=== PATIENT | female | born 1945 | race Caucasian/White ===

== ENCOUNTER 2018-11-19 19:39 | Inpatient (IN) | payer MEDICARE, BC ==
[2018-11-19 20:04] LABS: ABS Eosinophils 0.1 10^3/ul (0-0.6); ABS Lymphocytes 3.1 10^3/ul (1.0-4.8); ABS Monocytes 0.9 10^3/ul (0-0.8); ABS Neutrophils 6.4 10^3/ul (1.5-7.7); Eosinophil % 0.8 %; Hematocrit 34 % (35-47); Hemoglobin 11.2 g/dL (12.0-16.0); Lymphocyte % 29.4 %; Mean Corpuscular HGB Conc 34 g/dL (31-36); Mean Corpuscular Hemoglobin 29 pg (27-31); Mean Corpuscular Volume 85 fL (80-97); Platelet Count 179 10^3/uL (150-450); Red Blood Count 3.92 10^6 /uL (3.70-4.87); Red Cell Distribution Width 15 % (10-15); White Blood Count 10.4 10^3/uL (3.5-10.8)
[2018-11-19 20:20] LABS: ALT 16 U/L (7-52); AST 26 U/L (13-39); Albumin 3.8 g/dL (3.2-5.2); Albumin/Globulin Ratio 1.5 (1-3); Alkaline Phosphatase 83 U/L (34-104); Anion Gap 8 mmol/L (2-11); BUN/Creatinine Ratio 21.6 (8-20); Blood Urea Nitrogen 49 mg/dL (6-24); CO2 Carbon Dioxide 27 mmol/L (22-32); Calcium 8.9 mg/dL (8.6-10.3); Chloride 107 mmol/L (101-111); EGFR African American 25.7 (>60); EGFR Non-African American 21.2 (>60); Globulin 2.6 g/dL (2-4); Glucose 142 mg/dL (70-100); INR 1.1 (0.82-1.09); Potassium 3.9 mmol/L (3.5-5.0); Sodium 142 mmol/L (135-145); Total Protein 6.4 g/dL (6.4-8.9)
--- NOTE | 2018-11-19 20:25 | ED ---
Altered Mental Status - HPI Summary HPI Summary: Pt is a 73 y/o F presenting to the ED brought in by EMS for altered mental status. LEVEL 5 CAVEAT: Pts full hx and physical is limited due to current altered mental status. Per the pts daughter, staff at [facility], [place] informed her that the pt has been weak, lethargic, and experiencing low blood pressure all day. She has Alzheimers and is in heart failure, but usually responds to staff. She has not responded to any stimuli today. - History Of Current Complaint Chief Complaint: EDNeurologicalDeficit Stated Complaint: AMS PER EMS Time Seen by Provider: 11/19/18 20:08 Hx Obtained From: Patient Onset/Duration: Still Present, Gradually Timing: Constant, Lasting Hours Severity Initially: Moderate Severity Currently: Severe Character: Responsiveness, Lethargy Aggravating Factor(s): Unknown Alleviating Factor(s): Unknown Associated Signs And Symptoms: Positive: Weakness - Allergies/Home Medications Allergies/Adverse Reactions: Allergies Allergy/AdvReac Type Severity Reaction Status Date / Time No Known Allergies Allergy Verified 11/19/18 19:44 Home Medications: Home Medications Acetaminophen [Tylenol] 650 mg PO Q6H PRN 11/19/18 [History Confirmed 11/19/18] Carvedilol 6.25 mg PO BID 11/19/18 [History Confirmed 11/19/18] Cholecalciferol (Vitamin D3) [Vitamin D3] 2,000 unit PO DAILY 11/19/18 [History Confirmed 11/19/18] Fexofenadine (NF) [Amy 180 (NF)] 180 mg PO DAILY 11/19/18 [History Confirmed 11/19/18] Furosemide [Lasix] 20 mg PO DAILY 11/19/18 [History Confirmed 11/19/18] Haloperidol Lactate 5 mg PO BID 11/19/18 [History Confirmed 11/19/18] Hydrocortisone 2.5% CREAM(NF) 1 applic TOPICAL BID 11/19/18 [History Confirmed 11/19/18] Ketoconazole [Nizoral A-D] 125 ml TOPICAL SEE INSTRUCTIONS 11/19/18 [History Confirmed 11/19/18] Lisinopril 10 mg PO QPM 11/19/18 [History Confirmed 11/19/18] Magnesium Hydroxide [Milk of Magnesia] 400 mg PO QPM PRN 11/19/18 [History Confirmed 11/19/18] Multivitamin [Multiple Vitamins] 1 tab PO DAILY 11/19/18 [History Confirmed ] Quetiapine Fumarate [Seroquel 50 mg tab] 50 mg PO BID 11/19/18 [History Confirmed 11/19/18] Quetiapine Fumarate [Seroquel 50 mg tab] 150 mg PO QPM 11/19/18 [History Confirmed 11/19/18] Sertraline HCl [Zoloft] 25 mg PO DAILY 11/19/18 [History Confirmed 11/19/18] Venlafaxine EXT RELEASE CAP(NF [Effexor Xr CAP 225 MG (NF)] 225 mg PO DAILY [History Confirmed 11/19/18] PMH/Surg Hx/FS Hx/Imm Hx Previously Healthy: No - LEVEL 5 CAVEAT: Pts full hx and physical is limited due to current AMS. - Cancer History Hx Chemotherapy: No Hx Radiation Therapy: No Infectious Disease History: No Infectious Disease History: Denies: Traveled Outside the [place] in Last 30 Days - Family History Known Family History: Positive: Other Family History: LEVEL 5 CAVEAT: Pts full hx and physical is limited due to current altered mental status. - Social History Alcohol Use: None Substance Use Type: Reports: None Smoking Status (MU): Never Smoked Tobacco Review of Systems - ROS Summary Review of Systems Summary: LEVEL 5 CAVEAT: Pts full hx and physical is limited due to current altered mental status. Positive: Other - decreased responsiveness, low blood pressure Positive: Weakness All Other Systems Reviewed And Are Negative: No Physical Exam - Summary Physical Exam Summary: LEVEL 5 CAVEAT: Pts full hx and physical is limited due to current altered mental status. Appearance: The patient is well-nourished, and asleep at bedside. Skin: The skin is warm and dry and skin color reflects adequate perfusion. HEENT: The head is normocephalic and atraumatic. The conjunctivae are clear and without drainage. Nares are patent and without drainage. Mouth reveals moist mucous membranes and the throat is without erythema and exudate. The external ears are intact. The ear canals are patent and without drainage. The tympanic membranes are intact. Neck: The neck is supple with full range of motion and non-tender. There are no carotid bruits. There is no neck vein distension. Respiratory: Chest is non-tender. Lungs are clear to auscultation and breath sounds are symmetrical and equal. Cardiovascular: Heart is regular rate and rhythm. There is no murmur or rub auscultated. There is no peripheral edema and pulses are symmetrical and equal. Abdomen: The abdomen is soft and non-tender. There are normal bowel sounds heard in all four quadrants and there is no organomegaly palpated. Musculoskeletal: There is no back tenderness noted. There is good capillary refill. There is no peripheral edema or calf tenderness elicited. Neurological: Patient is poorly responsive. Psychiatric: The patient is poorly responsive. Triage Information Reviewed: Yes Vital Signs On Initial Exam: Initial Vitals Temp Pulse Resp BP Pulse Ox 97.2 F 99 19 111/58 92 11/19/18 19:40 11/19/18 19:40 11/19/18 19:40 11/19/18 19:40 11/19/18 19:40 Vital Signs Reviewed: Yes Completion Of Physical Exam Limited Due To: Altered Mental Status, Level 5 Diagnostics - Vital Signs Vital Signs Temp Pulse Resp BP Pulse Ox 11/19/18 19:50 102 22 111/58 93 11/19/18 19:46 106 17 92 11/19/18 19:40 97.2 F 99 19 111/58 92 - Laboratory Lab Results: Lab Results 11/19/18 Range/Units 19:55 WBC 10.4 (3.5-10.8) 10^3/uL RBC 3.92 (3.70-4.87) 10^6 /uL Hgb 11.2 L (12.0-16.0) g/dL Hct 34 L (35-47) % MCV 85 (80-97) fL MCH 29 (27-31) pg MCHC 34 (31-36) g/dL RDW 15 (10-15) % Plt Count 179 (150-450) 10^3/uL MPV 10.0 (7.4-10.4) fL Neut % (Auto) 61.1 % Lymph % (Auto) 29.4 % Hudson % (Auto) 8.3 % Eos % (Auto) 0.8 % Baso % (Auto) 0.4 % Absolute Neuts (auto) 6.4 (1.5-7.7) 10^3/ul Absolute Lymphs (auto) 3.1 (1.0-4.8) 10^3/ul Absolute Monos (auto) 0.9 H (0-0.8) 10^3/ul Absolute Eos (auto) 0.1 (0-0.6) 10^3/ul Absolute Basos (auto) 0.0 (0-0.2) 10^3/ul Absolute Nucleated RBC 0.0 10^3/ul Nucleated RBC % 0.0 Result Diagrams: 11/19/18 19:55 11/19/18 19:55 Lab Statement: Any lab studies that have been ordered have been reviewed, and results considered in the medical decision making process. - Radiology CXR Radiology Interpretation Completed By: ED Physician Summary of Radiographic Findings: Mild pulmonary edema. Pending official radiology report. Altered Mental Statu Course/Dx - Course Course Of Treatment: Ms. Portillo apparently has been less responsive with intermittent low blood pressures for most of the day at the custodial. The patient cannot really give a history at this time. She was given IV fluids for her borderline low blood pressure and tachycardia on arrival. Her EKG showed inverted T waves laterally and we have no old EKG to compare to. Her troponin did come back elevated at 0.48 and again we have nothing to compare to. This is suggestive of acute coronary syndrome or possibly an NSTEMI and I discussed the case with Dr. Cadena. I contacted the hospitalist Dr. Davis for admission and he is evaluating the patient at this time. - Diagnoses Provider Diagnoses: Acute coronary syndrome - Provider Notifications Discussed Care Of Patient With: Enrike Epps Time Discussed With Above Provider: 20:47 Instructed by Provider To: Admit As Inpatient - Critical Care Time Critical Care Time: 30-74 min - 30min Discharge - Sign-Out/Discharge Documenting (check all that apply): Patient Departure - Discharge Plan Condition: Stable Disposition: ADMITTED TO [facility] - Billing Disposition and Condition Condition: STABLE Disposition: Admitted to [facility] - Attestation Statements Document Initiated by Scribe: Yes Documenting Scribe: Shena Estrella Provider For Whom Farhad is Documenting (Include Credential): Calvin Ferguson MD. Scribe Attestation: Shena Sol, scribed for Calvin Ferguson MD. on 11/19/18 at 2145. Scribe Documentation Reviewed: Yes Provider Attestation: The documentation as recorded by the scribe, Shena Estrella accurately reflects the service I personally performed and the decisions made by me, Calvin Ferguson MD. Status of Scriblaura Document: Viewed Consult Consult: 2034 - I spoke with Dr. Cadena who recommended a beta guilherme and consideration of administering Heparin. 2046 - I spoke with Dr. Epps who will be evaluating the patient for admission.
[2018-11-19 20:26] LABS: Troponin I 0.48 ng/mL (<0.04)
[2018-11-19] MEDS ORDERED: NS 0.9% 1000 ML** 1,000 ML IV.FLUID IV ONE (20:28)
[2018-11-19] MEDS ORDERED: Magnesium Hydroxide LIQ* 30 ML UDC PO PRN (21:21)
[2018-11-19] MEDS ORDERED: Acetaminophen TAB* 325 MG PO PRN (21:21)
[2018-11-19] MEDS ORDERED: Heparin VIAL(*) 5000 UNITS/ML VIAL (FIVE THOUSAND) IV SCH (23:45)
[2018-11-20] MEDS: Aspirin 81 mg CHEW TAB* 81 MG TAB.CHEW PO ONE ×2 (00:10→00:30)
[2018-11-20 00:11] LABS: Troponin I 0.29 ng/mL (<0.04)
--- NOTE | 2018-11-20 00:42 | HP ---
History of Present Illness - History of Present Illness Reason for Visit: lethargy History of Present Illness: Date of admission: 11/19/18 CC: lethargy HPI: Patient is 73 year old woman with history of advanced Alzheimers Dementia who lives at [facility]. Staff were concerned that she was not her usual self; typically she can walk, and follow some commands; yesterday she was lethargic, and could not bear weight on legs when they got her to standing. She had BP measured 88/54, and tachypnea was noted. She normally is a little combative, not lethargic. Nursing staff notified Dr. Hernandez and she had patient transfered to [facility]. History obtained from SNF records, ER records, and patient's daughter Jessica. In the ER, hypovolemia suspected, and patient received 2 liters of NS IV. 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 Alcohol: None Drugs: None Lives: Longterm, Other - lives in [place], 2 children, daughter Jessica is HCP Review of Systems - Measurements Intake and Output: Intake and Output Last 24 Hours 11/17/18 11/18/18 11/19/18 11/20/18 06:59 06:59 06:59 06:59 Intake Total 0 Balance 0 Weight 80.558 kg Intake: Oral 0 - Review of Systems General Comments: unable to perform ROS due to mental status Objective Active Medications: Home Meds: Acetaminophen [Tylenol] 650 mg PO Q6H PRN 11/19/18 Carvedilol 6.25 mg PO BID 11/19/18 Cholecalciferol (Vitamin D3) [Vitamin D3] 2,000 unit PO DAILY 11/19/18 Fexofenadine (NF) [Amy 180 (NF)] 180 mg PO DAILY 11/19/18 Furosemide [Lasix] 20 mg PO DAILY 11/19/18 Haloperidol Lactate 5 mg PO BID 11/19/18 Hydrocortisone 2.5% CREAM(NF) 1 applic TOPICAL BID 11/19/18 Ketoconazole [Nizoral A-D] 125 ml TOPICAL SEE INSTRUCTIONS 11/19/18 Lisinopril 10 mg PO QPM 11/19/18 Magnesium Hydroxide [Milk of Magnesia] 400 mg PO QPM PRN 11/19/18 Multivitamin [Multiple Vitamins] 1 tab PO DAILY 11/19/18 Quetiapine Fumarate [Seroquel 50 mg tab] 150 mg PO QPM 11/19/18 Quetiapine Fumarate [Seroquel 50 mg tab] 50 mg PO BID 11/19/18 Sertraline HCl [Zoloft] 25 mg PO DAILY 11/19/18 Venlafaxine EXT RELEASE CAP(NF [Effexor Xr CAP 225 MG (NF)] 225 mg PO DAILY Inpatient Med: Acetaminophen (Tylenol Tab*) 650 mg PO Q6H PRN PRN Reason: PAIN - MILD Aspirin (Asa Supp*) 300 mg [place] DAILY [facility] Heparin Sodium (Porcine) (Heparin Vial(*)) 0 units IV .PER PROTOCOL [facility] Heparin Sodium/Dextrose (Heparin Drip 25,000 Units(*)) 25,000 units in 500 mls @ 0 mls/hr IV PER RATE [facility]; Protocol Lisinopril (Prinivil Tab*) 10 mg PO QPM [facility] Magnesium Hydroxide (Milk Of Magnesia Liq*) 5 ml PO QPM PRN PRN Reason: CONSTIPATION Vital Signs - 8 hr 11/19/18 11/19/18 11/19/18 19:40 19:46 19:50 Temperature 36.2 C Pulse Rate 99 106 102 Respiratory 19 17 22 Rate Blood Pressure 111/58 111/58 (mmHg) O2 Sat by Pulse 92 92 93 Oximetry 11/19/18 11/19/18 11/19/18 19:59 20:00 20:14 Temperature Pulse Rate 91 90 83 Respiratory 14 18 16 Rate Blood Pressure 105/51 98/52 (mmHg) O2 Sat by Pulse 92 93 93 Oximetry 11/19/18 11/19/18 11/19/18 20:23 20:29 20:44 Temperature Pulse Rate 84 82 76 Respiratory 18 18 15 Rate Blood Pressure 84/53 106/58 90/53 (mmHg) O2 Sat by Pulse 94 96 93 Oximetry Oxygen Devices in Use Now: None Appearance: elderly, not in distress, unresponsive Eyes: No Scleral Icterus Ears/Nose/Mouth/Throat: Clear Oropharnyx, - - closing mouth Neck: NL Appearance and Movements; NL JVP Respiratory: Symmetrical Chest Expansion and Respiratory Effort, Clear to Auscultation Cardiovascular: NL Sounds; No Murmurs; No JVD, RRR Abdominal: NL Sounds; No Tenderness; No Distention Lymphatic: No Cervical Adenopathy Extremities: - - trace edema Skin: No Rash or Ulcers Neurological: - - unresponsive Lines/Tubes/Other Access: Clean, Dry and Intact Peripheral IV Nutrition: - Result Diagrams: 11/20/18 06:26 11/20/18 06:26 Additional Lab and Data: Laboratory Tests 11/19/18 11/19/18 11/19/18 19:55 19:55 19:55 INR (Anticoag Therapy) 1.10 H Lactic Acid 1.8 Calcium 8.9 AST 26 ALT 16 Alkaline Phosphatase 83 Troponin I 0.48 H* B-Natriuretic Peptide Albumin 3.8 11/19/18 19:55 INR (Anticoag Therapy) Lactic Acid Calcium AST ALT Alkaline Phosphatase Troponin I B-Natriuretic Peptide 166 H Albumin Diagnostic Imaging: CXR: no infiltrates or effusions Head CT: no infarct or bleed, atrophy EKG Data: NSR, leftward axis, deep T-wave inversions I, aVL, V3-V6 Assess/Plan/Problems-Billing Assessment: 73 year old woman with alzheimers dementia, HFrEF, here with lethargy, hypotension, non-STEMI - Patient Problems (1) Non-ST elevated myocardial infarction (non-STEMI) Current Visit: Yes Status: Acute Priority: High Code(s): I21.4 - NON-ST ELEVATION (NSTEMI) MYOCARDIAL INFARCTION SNOMED Code(s): 62598718 Comment: -Patient will be admitted to cardiac floor, have telemetry monitoring, serial troponins -Discussed with daughter Jessica, she does not want any invasive interventions -Will start aspirin daily, and IV heparin. -Will add beta guilherme if blood pressure tolerates (2) Altered mental status Current Visit: Yes Status: Acute Priority: Medium Code(s): R41.82 - ALTERED MENTAL STATUS, UNSPECIFIED SNOMED Code(s): 332646481 Comment: -Patient appears to have delirium on top of chronic dementia -Will monitor electrolyes, glucose, etc, give supportive care -No apparent infectious etiology -Head CT rules out cerebral hemorrhage, but ischemic stroke still in differential (3) DNR no code (do not resuscitate) Current Visit: Yes Status: Acute Priority: Medium Comment: -Code status confirmed with daughter -MOLST updated (4) DVT prophylaxis Current Visit: Yes Status: Acute Priority: Low Code(s): Z29.9 - ENCOUNTER FOR PROPHYLACTIC MEASURES, UNSPECIFIED SNOMED Code(s): 925376259 Comment: -Moderate risk -Will be on IV heparin Status and Disposition: inpatient
[2018-11-20] MEDS: Heparin DRIP 25,000 UNITS(*) 25,000 UNITS/500 ML BAG IV SCH (01:14)
[2018-11-20] MEDS: Aspirin SUPP* 300 MG PR SCH ×2 (01:16→16:08)
[2018-11-20 02:52] LABS: Troponin I 0.28 ng/mL (<0.04)
[2018-11-20 06:52] LABS: ABS Eosinophils 0.1 10^3/ul (0-0.6); ABS Lymphocytes 3.6 10^3/ul (1.0-4.8); ABS Monocytes 0.9 10^3/ul (0-0.8); Eosinophil % 1.4 %; Hematocrit 31 % (35-47); Hemoglobin 10.4 g/dL (12.0-16.0); Lymphocyte % 37.7 %; Mean Corpuscular HGB Conc 34 g/dL (31-36); Mean Corpuscular Hemoglobin 29 pg (27-31); Mean Corpuscular Volume 85 fL (80-97); Mean Platelet Volume 10.3 fL (7.4-10.4); Platelet Count 165 10^3/uL (150-450); Red Blood Count 3.61 10^6 /uL (3.70-4.87); Red Cell Distribution Width 15 % (10-15); White Blood Count 9.6 10^3/uL (3.5-10.8)
[2018-11-20 07:10] LABS: Calcium 8.1 mg/dL (8.6-10.3); Potassium 3.8 mmol/L (3.5-5.0)
[2018-11-20 07:16] LABS: BUN/Creatinine Ratio 30.5 (8-20); EGFR African American 40.2 (>60); EGFR Non-African American 33.2 (>60)
--- NOTE | 2018-11-20 09:16 | PN ---
Subjective Date of Service: 11/20/18 Interval History: Patient accompanied by daughter Jessica and brother Jim. Ramirez is a 73 yo female from [facility], admitted yesterday with concern for AMS and lethargy, found to have an NSTEMI. She is more alert this morning, responds to family. Does not respond when asked if she has chest pain but does continue to point and focus on an area of her left chest. Family History: Unchanged from Admission Social History: Unchanged from Admission Past Medical History: Unchanged from Admission Objective Active Medications: Acetaminophen (Tylenol Tab*) 650 mg PO Q6H PRN PRN Reason: PAIN - MILD Aspirin (Asa Supp*) 300 mg [place] DAILY [facility] Last Admin: 11/20/18 01:16 Dose: 300 mg Heparin Sodium (Porcine) (Heparin Vial(*)) 0 units IV .PER PROTOCOL [facility] Last Admin: 11/20/18 01:13 Dose: 4,000 units Heparin Sodium/Dextrose (Heparin Drip 25,000 Units(*)) 25,000 units in 500 mls @ 0 mls/hr IV PER RATE [facility]; Protocol Last Admin: 11/20/18 01:14 Dose: 19 mls/hr Lisinopril (Prinivil Tab*) 10 mg PO QPM [facility] Magnesium Hydroxide (Milk Of Magnesia Liq*) 5 ml PO QPM PRN PRN Reason: CONSTIPATION Vital Signs - 8 hr 11/20/18 03:55 Temperature 97.2 F Pulse Rate 90 Respiratory 20 Rate Blood Pressure 115/70 (mmHg) O2 Sat by Pulse 100 Oximetry Oxygen Devices in Use Now: None Appearance: Older female, sitting up in bed, alert, interactive, NAD Eyes: No Scleral Icterus, PERRLA, - - right eye upper lid swelling and injection Ears/Nose/Mouth/Throat: Clear Oropharnyx, Mucous Membranes Moist Neck: NL Appearance and Movements; NL JVP Respiratory: Symmetrical Chest Expansion and Respiratory Effort, Clear to Auscultation Cardiovascular: NL Sounds; No Murmurs; No JVD, RRR Abdominal: NL Sounds; No Tenderness; No Distention Extremities: No Edema, No Clubbing, Cyanosis Skin: No Rash or Ulcers Neurological: NL Muscle Strength and Tone - purposeful movement of all extremties, - - Alert, oriented x 0, unable to evaluate visual mckay fully Lines/Tubes/Other Access: Clean, Dry and Intact Peripheral IV Nutrition: Taking PO's Result Diagrams: 11/20/18 06:26 11/20/18 06:26 Additional Lab and Data: Laboratory Tests 11/19/18 11/19/18 11/19/18 19:55 19:55 19:55 INR (Anticoag Therapy) 1.10 H Lactic Acid 1.8 Calcium 8.9 AST 26 ALT 16 Alkaline Phosphatase 83 Troponin I 0.48 H* B-Natriuretic Peptide Albumin 3.8 11/19/18 19:55 INR (Anticoag Therapy) Lactic Acid Calcium AST ALT Alkaline Phosphatase Troponin I B-Natriuretic Peptide 166 H Albumin Microbiology and Other Data: Microbiology 11/19/18 22:45 Nasal Screen MRSA (PCR) - Final Nasal Mrsa Not Detected Diagnostic Imaging: CXR: no infiltrates or effusions Head CT: no infarct or bleed, atrophy EKG Data: NSR, leftward axis, deep T-wave inversions I, aVL, V3-V6 Assess/Plan/Problems-Billing Assessment: 73 year old woman with alzheimers dementia, HFrEF, here with lethargy, hypotension, non-STEMI - Patient Problems (1) Non-ST elevated myocardial infarction (non-STEMI) Current Visit: Yes Status: Acute Priority: High Code(s): I21.4 - NON-ST ELEVATION (NSTEMI) MYOCARDIAL INFARCTION SNOMED Code(s): 02017499 Comment: - Started on heparin gtt - troponin peaked at 0.48 - POC discussed with daughter Jessica, she does not want any invasive interventions. Medical management and comfort promotion are goals. - Cont aspirin daily and IV heparin. - Previously on carvedilol 6.25 BID; can consider reinitiating beta guilherme if blood pressure tolerates (2) Altered mental status Code(s): R41.82 - ALTERED MENTAL STATUS, UNSPECIFIED Comment: - Patient appears to have delirium on top of chronic dementia - Cont to monitor electrolyes, glucose, etc, give supportive care - No apparent infectious etiology - Head CT rules out cerebral hemorrhage, but ischemic stroke still in differential - Neuro exam appears within baseline but unable to determine if visual mckay have deficits as patient does not cooperate with exam. - Consider MRI on Thursday if concern for neurological deficits. (3) Systolic heart failure Code(s): I50.20 - UNSPECIFIED SYSTOLIC (CONGESTIVE) HEART FAILURE Comment: - Previous EF 30% per TTE performed at [facility] - TTE ordered following NSTEMI - Daily weights - Continue lisinopril; Lasix and carvedilol on hold (4) Alzheimer's dementia with behavioral disturbance Code(s): G30.9 - ALZHEIMER'S DISEASE, UNSPECIFIED; F02.81 - DEMENTIA IN OTH DISEASES CLASSD ELSWHR W BEHAVIORAL DISTURB Comment: - Progressive - Home seroquel and haloperidol on hold at this time - Continue supportive care and comfort promotion (5) DVT prophylaxis Code(s): Z29.9 - ENCOUNTER FOR PROPHYLACTIC MEASURES, UNSPECIFIED Comment: - Moderate risk - Will be on IV heparin (6) DNR no code (do not resuscitate) Comment: - Code status confirmed with daughter - MOLST updated on admission Status and Disposition: Inpatient, anticipate d/c to [facility] when medically stable. Attending: Stephon Lim
[2018-11-20] MEDS ORDERED: Morphine INJ* 2 MG/ML 1 ML SYRINGE (TWO MG - NEW SYRINGE VERSION) IV ONE (09:54)
[2018-11-20] MEDS ORDERED: Morphine INJ* 2 MG/ML 1 ML SYRINGE (TWO MG - NEW SYRINGE VERSION) IV PRN (09:54)
[2018-11-20] MEDS: Ciprofloxacin 0.3% OPTH.SOL* BTL RIGHT EYE SCH ×4 (10:46→21:29)
[2018-11-20] MEDS: Lisinopril TAB* 10 MG PO SCH ×2 (10:46→17:27)
[2018-11-20] MEDS: Aspirin TAB* 325 MG PO SCH (11:04)
[2018-11-20] MEDS ORDERED: Haloperidol TAB* 5 MG PO ONE (17:46)
[2018-11-20] MEDS: QUEtiapine TAB* 25 MG PO SCH (21:30)
[2018-11-21] MEDS: Ciprofloxacin 0.3% OPTH.SOL* BTL RIGHT EYE SCH ×6 (02:41→22:00)
[2018-11-21 05:32] LABS: CO2 Carbon Dioxide 23 mmol/L (22-32); Calcium 9.2 mg/dL (8.6-10.3); Chloride 110 mmol/L (101-111); Sodium 141 mmol/L (135-145)
[2018-11-21 05:38] LABS: Blood Urea Nitrogen 30 mg/dL (6-24); EGFR African American 66.1 (>60); EGFR Non-African American 54.7 (>60); Glucose 99 mg/dL (70-100)
[2018-11-21 05:54] LABS: Anion Gap 8 mmol/L (2-11)
[2018-11-21 06:14] LABS: Hematocrit 33 % (35-47); Hemoglobin 11.4 g/dL (12.0-16.0); Mean Corpuscular HGB Conc 35 g/dL (31-36); Mean Corpuscular Hemoglobin 29 pg (27-31); Mean Corpuscular Volume 85 fL (80-97); Mean Platelet Volume 11.1 fL (7.4-10.4); Platelet Count 174 10^3/uL (150-450); Red Cell Distribution Width 15 % (10-15); White Blood Count 10.2 10^3/uL (3.5-10.8)
[2018-11-21 06:30] LABS: Nucleated Red Blood Cells % 0.2
[2018-11-21 06:34] LABS: ABS Basophils 0.1 10^3/ul (0-0.2); ABS Eosinophils 0.3 10^3/ul (0-0.6)
[2018-11-21] MEDS: Heparin DRIP 25,000 UNITS(*) 25,000 UNITS/500 ML BAG IV SCH (06:48)
[2018-11-21] MEDS: QUEtiapine TAB* 25 MG PO SCH ×2 (08:43→20:22)
[2018-11-21] MEDS: Aspirin TAB* 325 MG PO SCH (08:43)
[2018-11-21] MEDS: Sertraline* 25 MG TAB PO SCH (08:44)
--- NOTE | 2018-11-21 11:08 | ECHO ---
*[facility]* [place] [address] Fax #: [phone] Transthoracic Echocardiogram Patient: Ashley Portillo : 1945 Study Date: 11/21/2018 Age: 73 Gender: F HR: 96 bpm Height: 66 in /167.6 cm BSA: 1.9 m^2 Weight: 176.6 lb /80.3 kg BMI: 28.6 kg/m^2 *Cnc Programmer: * Rhea Penaloza RDCS *Referring Physician: * Enrike Epps *Reading Physician: * Isidra Cadena MD Indications: Myocardial Infarction (new). History: Congestive heart failure. Advanced Alzheimer's. Conclusions Summary: - Left ventricle: There is mild concentric hypertrophy. Systolic function is moderately reduced. The estimated ejection fraction is 30-35%. Apical 1/3 of the myocardium akinetic. Doppler parameters are consistent with abnormal left ventricular relaxation (grade 1 diastolic dysfunction). - Right ventricle: The cavity size is normal. Wall thickness is mildly increased. Systolic function is normal. - Mitral valve: There is trace to mild regurgitation. - No prior echocardiogram to compare. Study data: Transthoracic echocardiogram. Procedure: Transthoracic echocardiography was performed. Image quality was fair. The study was technically limited due to poor acoustic window availability and poor patient compliance. Complete 2D, spectral Doppler, and color flow Doppler. Location: Bedside. Patient status: Inpatient. Patient room number: 436. Rhythm: Normal sinus rhythm with PVC's. Findings Left ventricle: The cavity size is normal. There is mild concentric hypertrophy. Systolic function is moderately reduced. The estimated ejection fraction is 30-35%. Regional wall motion abnormalities: Akinesis of the apicalanterolateral myocardium. Hypokinesis of the mid-apicalinferior and inferoseptal myocardium. Hypokinesis of the apicalanteroseptal and anterior myocardium. Hypokinesis of the mid-apicalinferolateral myocardium. Doppler parameters are consistent with abnormal left ventricular relaxation (grade 1 diastolic dysfunction). Right ventricle: The cavity size is normal. Wall thickness is mildly increased. Systolic function is normal. Left atrium: The atrium is normal in size. Right atrium: The atrium is normal in size. Mitral valve: Appears mildly calcified. The leaflets are mildly thickened. There is no evidence of stenosis. There is trace to mild regurgitation. Aortic valve: Not well visualized. There is no evidence of stenosis. There is no significant regurgitation. Tricuspid valve: The leaflets are normal thickness. There is no evidence of stenosis. There is physiologic regurgitation. Pulmonic valve: The leaflets are normal thickness. There is no evidence of stenosis. There is trace regurgitation. Aorta: Ascending aorta: The ascending aorta is appears normal. The aortic root appears normal. The aortic arch appears normal. Pericardium: A prominent pericardial fat pad is present. There is no significant pericardial effusion. Pulmonary arteries: Poorly visualized. Systolic pressure can not be accurately estimated. Systemic veins: Inferior vena cava: Not well visualized. Measurements Left ventricle Value Ref Right atrium Value Ref MIS, LAX 4.4 cm 3.8 - 5.2 SI dim, ES 5.0 cm 3.4 - 5.3 ESD, LAX 3.4 cm 2.2 - 3.5 ML dim, ES, A4C 3.2 cm 2.6 - 4.4 FS, LAX (L) 24 % 27 - 45 SI dim, ES, A4C 5.0 cm 3.4 - 5.3 PW, ED, LAX (H) 1.1 cm 0.6 - 0.9 SI dim/bsa, ES, A4C 2.6 cm/m^2 1.9 - 3.1 FS (L) 24 % 27 - 45 Estimated RAP 8 mm Hg --------- PW, ED (H) 1.1 cm 0.6 - 0.9 E', lat sharifa, TDI (L) 5.8 cm/sec >=10.0 Aortic valve Value Re f E/e', lat sharifa, 12 Sharifa diam, ED 2.3 cm ----- ---- TDI Peak v, S 1.3 m/sec --------- E', med sharifa, TDI (L) 4.7 cm/sec >=7.0 VTI, S 19.5 cm -- ------- E/e', med sharifa, 14 Mean grad, S 3.0 mm Hg ----- ---- TDI Peak grad, S 7.0 mm Hg --------- E', avg, TDI 5.3 cm/sec LVOT/AV, VTI ratio 0.82 ----- ---- E/e', avg, TDI 13 <=14 SRIRAM, VTI 2.58 cm^2 -- ------- SRIRAM, Vmax 2.23 cm^2 --------- LVOT Value Ref Diam, S 2.00 cm Mitral valve Value Ref Area 3.1 cm^2 Peak E 0.67 m/sec --------- Peak amanda, S 0.92 m/sec Peak A 1 m/sec --------- VTI, S 16.0 cm Decel time 211 ms --------- Mean grad, S 1 mm Hg Peak E/A ratio 0.7 --------- SV 49 ml SV/bsa 26 ml/m^2 Pulmonic valve Value Ref Peak v, S 1.76 m/sec --------- Ventricular septum Value Ref Peak grad, S 12.0 mm Hg --------- IVS, ED (H) 1.1 cm 0.6 - 0.9 Aortic root Value Ref Right ventricle Value Ref Root diam 3.0 cm <4.1 AW thickness, ED (H) 0.6 cm 0.1 - 0.5 MIS, LAX 2.0 cm Ascending aorta Value Ref MIS minor ax, (H) 3.8 cm 1.9 - 3.5 AAo AP diam, S 3.1 cm --------- A4C mid Aortic arch Value Ref Left atrium Value Ref Arch diam 2.5 cm --------- AP dim, ES 3.70 cm 2.70 - 3.80 Decending aorta Value Ref ML dim, A4C 5.3 cm Joseph peak amanda 0.58 m/sec --------- SI dim, A4C 4.8 cm Vol/bsa, ES, 1-p 22 ml/m^2 11 - 40 A4C Vol/bsa, ES, A/L 26 ml/m^2 16 - 34 Legend: (L) and (H) jhonny values outside specified reference range. Prepared and electronically signed by Isidra Cadena MD 11/21/2018 11:08
[2018-11-21] MEDS ORDERED: Metoprolol Tartrate TAB* 25 MG PO SCH (12:34)
--- NOTE | 2018-11-21 12:41 | PN ---
Subjective Date of Service: 11/21/18 Interval History: Pt does not answer any of my questions. She speaks non-sensically. Family History: Unchanged from Admission Social History: Unchanged from Admission Past Medical History: Unchanged from Admission Objective Active Medications: Acetaminophen (Tylenol Tab*) 650 mg PO Q6H PRN PRN Reason: PAIN - MILD Aspirin (Aspirin Tab*) 325 mg PO DAILY [facility] Last Admin: 11/21/18 08:43 Dose: 325 mg Ciprofloxacin HCl (Cipro 0.3% Opth*) 1 drop RIGHT EYE Q4HR [facility] Last Admin: 11/21/18 08:52 Dose: 1 drop Heparin Sodium (Porcine) (Heparin Vial(*)) 0 units IV .PER PROTOCOL [facility] Last Admin: 11/20/18 01:13 Dose: 4,000 units Heparin Sodium/Dextrose (Heparin Drip 25,000 Units(*)) 25,000 units in 500 mls @ 0 mls/hr IV PER RATE [facility]; Protocol Last Admin: 11/21/18 06:48 Dose: 16 mls/hr Lisinopril (Prinivil Tab*) 10 mg PO QPM [facility] Last Admin: 11/20/18 17:27 Dose: 10 mg Magnesium Hydroxide (Milk Of Magnesia Liq*) 5 ml PO QPM PRN PRN Reason: CONSTIPATION Last Admin: 11/21/18 08:42 Dose: 5 ml Metoprolol Tartrate (Lopressor Tab*) 12.5 mg PO BID [facility] Morphine Sulfate (Morphine Inj (Syringe))*) 2 mg IV Q4H PRN PRN Reason: chest pain Quetiapine Fumarate (Seroquel Tab*) 50 mg PO BID [facility] Last Admin: 11/21/18 08:43 Dose: 50 mg Sertraline HCl (Zoloft*) 25 mg PO DAILY [facility] Last Admin: 11/21/18 08:44 Dose: 25 mg Vital Signs - 8 hr 11/21/18 11/21/18 07:53 08:00 Temperature 97.9 F Pulse Rate 85 Respiratory 18 19 Rate Blood Pressure 141/85 (mmHg) O2 Sat by Pulse 96 Oximetry Oxygen Devices in Use Now: None Appearance: Elderly female sitting up in bed, folding towels, NAD Eyes: No Scleral Icterus Ears/Nose/Mouth/Throat: Mucous Membranes Moist Respiratory: Symmetrical Chest Expansion and Respiratory Effort, Clear to Auscultation - few bibasilar crackles Cardiovascular: NL Sounds; No Murmurs; No JVD, No Edema, - - mildly tachycardic Abdominal: NL Sounds; No Tenderness; No Distention Extremities: No Clubbing, Cyanosis Skin: No Nodules or Sclerosis Neurological: - - alert, confused, at baseline of which I know from [facility] Result Diagrams: 11/21/18 05:06 11/21/18 08:52 Additional Lab and Data: Laboratory Tests 11/19/18 11/19/18 11/19/18 19:55 19:55 19:55 INR (Anticoag Therapy) 1.10 H Lactic Acid 1.8 Calcium 8.9 AST 26 ALT 16 Alkaline Phosphatase 83 Troponin I 0.48 H* B-Natriuretic Peptide Albumin 3.8 11/19/18 19:55 INR (Anticoag Therapy) Lactic Acid Calcium AST ALT Alkaline Phosphatase Troponin I B-Natriuretic Peptide 166 H Albumin Microbiology and Other Data: Microbiology 11/19/18 22:45 Nasal Screen MRSA (PCR) - Final Nasal Mrsa Not Detected Diagnostic Imaging: CXR: no infiltrates or effusions Head CT: no infarct or bleed, atrophy EKG Data: NSR, leftward axis, deep T-wave inversions I, aVL, V3-V6 Assess/Plan/Problems-Billing Ms Portillo is a 73yo F who has a h/o Alzheimers dementia and HFrEF who presented with lethargy and hypotension and was found to have a non-STEMI. - Patient Problems (1) Non-ST elevated myocardial infarction (non-STEMI) Current Visit: Yes Status: Acute Priority: High Code(s): I21.4 - NON-ST ELEVATION (NSTEMI) MYOCARDIAL INFARCTION SNOMED Code(s): 46313256 Comment: Pt's symptoms likely secondary to NSTEMI. Continue ASA, heparin drip until this evening. Restart coreg 6.25mg BID. Continue lisinopril but decrease to 5mg daily to allow pt to tolerate BBlocker. Will start low dose lipitor. (2) Acute renal failure Current Visit: Yes Status: Acute Comment: Pt with renal failure on admission with creatinine >2x her baseline. Likley related to hypotension from NSTEMI and probably volume depletion from not eating/drinking well prior to admission as she was lethargic. Creatinine has now improved. (3) Systolic heart failure Current Visit: Yes Status: Acute Code(s): I50.20 - UNSPECIFIED SYSTOLIC ( CONGESTIVE) HEART FAILURE SNOMED Code(s): 188331850 Comment: Previous EF 30% per TTE performed at [facility]. TTE ordered following NSTEMI- results pending. Continue daily weights while hospitalized, lisinopril at reduced dose and coreg (restarting tonight). Lasix is on hold will likely resume on d/c. (4) Altered mental status Current Visit: Yes Status: Acute Priority: Medium Code(s): R41.82 - ALTERED MENTAL STATUS, UNSPECIFIED SNOMED Code(s): 434007712 Comment: Pt is back to her baseline mental status. No need for further neuro imaging. (5) Alzheimer's dementia with behavioral disturbance Current Visit: Yes Status: Acute Code(s): G30.9 - ALZHEIMER'S DISEASE, UNSPECIFIED; F02.81 - DEMENTIA IN OTH DISEASES CLASSD ELSWHR W BEHAVIORAL DISTURB SNOMED Code(s): 4190434703437 Comment: Pt back to baseline mental status and somewhat agitated this AM. Will add back standing haldol. Keep seroquel at reduced dose. (6) DVT prophylaxis Current Visit: Yes Status: Acute Priority: Low Code(s): Z29.9 - ENCOUNTER FOR PROPHYLACTIC MEASURES, UNSPECIFIED SNOMED Code(s): 576647427 Comment: Heparin drip (7) DNR no code (do not resuscitate) Current Visit: Yes Status: Acute Priority: Medium Status and Disposition: d/c to [facility] tomorrow
[2018-11-21] MEDS ORDERED: Lisinopril TAB* 10 MG PO SCH ×2 (13:00→18:00)
[2018-11-21] MEDS ORDERED: Haloperidol INJ IV/IM* 5 MG/ML AMP IV SLOW PU ONE (14:19)
[2018-11-21] MEDS: Haloperidol TAB* 5 MG PO SCH (20:21)
[2018-11-21] MEDS: Carvedilol TAB* 6.25 MG PO SCH (20:22)
[2018-11-21] MEDS ORDERED: Atorvastatin* 20 MG TAB PO SCH (21:00)
[2018-11-22] MEDS: Ciprofloxacin 0.3% OPTH.SOL* BTL RIGHT EYE SCH ×3 (04:13→11:04)
[2018-11-22 08:24] VITALS: BP 145/72
[2018-11-22] MEDS ORDERED: Aspirin 81 mg CHEW TAB* 81 MG TAB.CHEW PO SCH (09:00)
[2018-11-22] MEDS ORDERED: Venlafaxine EXT RELEASE CAP* 37.5 MG PO SCH (09:00)
[2018-11-22] MEDS: QUEtiapine TAB* 25 MG PO SCH (11:03)
[2018-11-22] MEDS: Sertraline* 25 MG TAB PO SCH (11:03)
[2018-11-22] MEDS: Haloperidol TAB* 5 MG PO SCH (11:04)
[2018-11-22] MEDS: Carvedilol TAB* 6.25 MG PO SCH (11:04)
--- NOTE | 2018-11-22 15:04 | DS ---
CC: [facility]* DISCHARGE SUMMARY: DATE OF ADMISSION: 11/19/18 DATE OF DISCHARGE: 11/22/18 PRIMARY CARE PROVIDER: Kasey Hernandez DO PRINCIPAL DIAGNOSIS: Gtf-SV-tfecpdsio myocardial infarction. SECONDARY DIAGNOSES: 1. Alzheimer's dementia. 2. Behavioral disturbances related to dementia. DISCHARGE MEDICATIONS: 1. Hydrocortisone cream applied topically twice daily. 2. Ketoconazole shampoo, wash hair weekly. 3. Vitamin D 2000 units p.o. daily. 4. Venlafaxine XR 225 mg p.o. daily. 5. Sertraline 25 mg p.o. daily. 6. Tylenol 650 mg p.o. q.6 hours p.r.n. pain. 7. Seroquel 50 mg p.o. b.i.d. 8. Multivitamin 1 tab p.o. daily. 9. Milk of Magnesia 400 mg p.o. q.h.s. p.r.n. constipation. 10. Lisinopril 10 mg p.o. daily at 1300. 11. Haldol 5 mg p.o. b.i.d. 12. Lasix 20 mg p.o. daily. 13. Amy 180 mg p.o. daily. 14. Coreg 6.25 mg p.o. b.i.d. 15. Cipro drops 1 drop to the right eye q.4 hours x7 days. 16. Lipitor 20 mg p.o. q.h.s. 17. Aspirin 81 mg p.o. daily. HOSPITAL COURSE: Ms. Portillo is a 73-year-old female who has a history of advanced Alzheimer's dementia with behavioral disturbances, who resides at [facility], who presents to the emergency room after [facility]. It is unclear how long the patient had been symptomatic, but her symptoms were going on for at least 12 hours. Upon presentation to the emergency room, the patient was found to have an elevated troponin of 0.48. It is surmised that the patient likely had a non- ST-elevation IL in a day or 2 prior. The patient was also found to be in acute renal failure with creatinine elevated at 2.27. This likely is related to her lethargy and not eating or drinking much prior to presenting to the emergency room and perhaps hypotension related to an IL. The patient was admitted and treated medically for her non-ST- elevation IL with aspirin, heparin drip, and Lipitor. The patient due to the hypotension was initially kept off her beta- guilherme and DEREK inhibitor; however, now that her blood pressure has returned back to baseline, these have been resumed. Ashley has a very difficult time communicating and it is unclear if anything is bothering her on the day of discharge. She does not seem to indicate that she has any chest pain or shortness of breath. The patient also underwent transthoracic echocardiogram given her history of systolic congestive heart failure. The patient was found to have an EF of 30% to 35% with akinesis of the apical anterolateral myocardium. There is also hypokinesis of the mid apical inferior and inferoseptal myocardium, apical anteroseptal and anterior myocardium, and hypokinesis of the mid, apical inferolateral myocardium. The patient appears relatively euvolemic and stable from how I know her at [facility]. On the day of discharge, patient is awake and alert, she is ambulating in the guerrero with an aide. Cardiac exam revealed normal S1, S2 with a regular rate and rhythm. Her lungs were clear. Her abdomen was soft, nontender, and nondistended. FOLLOWUP CONCERNS: The patient is being discharged home today, 11/22/18, change home to [facility] today, 11/22/18. ACTIVITY LEVEL: As tolerated. DIET: Regular. CONDITION ON DISCHARGE: Stable. TIME SPENT: 35 minutes was spent discharging this patient. [id number]/[facility] #: [id number] MTDD
== END 2018-11-22 13:54 | DRG 281 ==
LOC: ED 19:39 → MEDTELE 21:01
PROVIDERS: ADMIT Internal Medicine; ATTEND Hospitalist
DX: I21.4 Non-ST elevation (NSTEMI) myocardial infarction (principal); F02.81 Dementia in other diseases classified elsewhere, unspecified severity, with behavioral disturbance; N17.9 Acute kidney failure, unspecified; I50.20 Unspecified systolic (congestive) heart failure; F05 Delirium due to known physiological condition; G30.9 Alzheimer's disease, unspecified; I95.9 Hypotension, unspecified; E86.1 Hypovolemia; Z66 Do not resuscitate; Z80.3 Family history of malignant neoplasm of breast; Z80.1 Family history of malignant neoplasm of trachea, bronchus and lung; Z80.0 Family history of malignant neoplasm of digestive organs; Z82.0 Family history of epilepsy and other diseases of the nervous system; Z87.891 Personal history of nicotine dependence; Z79.1 Long term (current) use of non-steroidal anti-inflammatories (NSAID); Z79.899 Other long term (current) drug therapy
CPT/HCPCS: 36415; 70450; 71045; 80048; 80053; 83605; 83880; 84484; 85025; 85610; 85730; 86140; 87641; 93005; 93306; 99284; A9270-GY; J1630; J1644; J2270

== ENCOUNTER 2019-02-06 09:20 | Emergency (ER) | payer MEDICARE, OTHER, BC ==
[2019-02-06] MEDS ORDERED: Lidocaine 1% w EPI 1:100,000* MDV 20 ML VIAL INJ ONE (09:57)
[2019-02-06] MEDS ORDERED: Tetan/Diph/Pertus SYR(Tdap)* 0.5 ML SYR(BOOSTRIX) use SYR contains LATEX IM ONE (09:57)
[2019-02-06] MEDS ORDERED: Lidocaine 2% w/ EPI 1:200,000* 20 ML SDV VIAL ONE (10:31)
--- NOTE | 2019-02-06 10:37 | ED ---
Head Injury - HPI Summary HPI Summary: This pt is a 73 Y/O F presenting to [facility], brought in by EMS from a alf , due to a head injury she sustained after a fall earlier today. Per EMS the fall was unwitnessed and the pt was found on the ground with a laceration to the back of her head. The pain is rated a 4/10 in severity. THIS PT IS A LEVEL 5 CAVEAT DUE TO HER BASELINE MENTAL STATUS A RESULT OF DEMENTIA. She does not take any blood thinners. - History Of Current Complaint Chief Complaint: EDLacSutureRecheck Stated Complaint: FALL PER EMS Time Seen by Provider: 02/06/19 09:45 Hx Obtained From: EMS Hx From Patient Unobtainable Due To: Dementia Mechanism Of Injury: Unknown - Fall, mechanism is unknown Severity Currently: Moderate Severity Initially: Moderate Pain Intensity: 4 Pain Scale Used: 0-10 Numeric Location of Head Injury: Occipital Location: Discrete At: - occipital - Allergies/Home Medications Allergies/Adverse Reactions: Allergies Allergy/AdvReac Type Severity Reaction Status Date / Time No Known Allergies Allergy Verified 02/06/19 09:58 Home Medications: Home Medications QUEtiapine TAB* [Seroquel 100 MG *] 100 mg PO BEDTIME 02/06/19 [History Confirmed 02/06/19] Quetiapine Fumarate [Seroquel 50 mg tab] 100 mg PO BEDTIME 02/06/19 [History Confirmed 02/06/19] PMH/Surg Hx/FS Hx/Imm Hx Previously Healthy: Yes - A FULL PMHX IS UNOBTAINABLE DUE TO HER HX OF DEMENTIA Cardiovascular History: Reports: Hx Congestive Heart Failure Sensory History: Denies: Hx Contacts or Glasses, Hx Hearing Aid Opthamlomology History: Denies: Hx Contacts or Glasses Neurological History: Reports: Hx Dementia - Cancer History Hx Chemotherapy: No Hx Radiation Therapy: No Infectious Disease History: No Infectious Disease History: Denies: Traveled Outside the [place] in Last 30 Days - Family History Known Family History: Positive: Other Family History: LEVEL 5 CAVEAT: Pts full hx and physical is limited due to current altered mental status. - Social History Alcohol Use: Unable to assess Substance Use Type: Reports: None Smoking Status (MU): Never Smoked Tobacco Review of Systems - ROS Summary Review of Systems Summary: A FULL ROS IS UNOBTAINABLE DUE TO HER BASELINE MENTAL STATUS DUE TO A HX OF DEMENTIA. Skin: Other - laceration to her occipital head All Other Systems Reviewed And Are Negative: No Physical Exam - Summary Physical Exam Summary: Constitutional: Well-developed, Well-nourished, Alert. (-) Distressed Skin: 8 cm laceration of the superior occipital HENT: Normocephalic; Atraumatic Eyes: Conjunctiva normal Neck: Musculoskeletal ROM normal neck. (-) JVD, (-) Stridor, (-) Nuchal rigidity Cardio: Rhythm regular, rate normal, Heart sounds normal; Intact distal pulses; Radial pulses are 2+ and symmetric. (-) Murmur Pulmonary/Chest wall: Effort normal. (-) Respiratory distress, (-) Wheezes, (-) Rales Abd: Soft, (-) tenderness, (-) Distension, (-) Guarding, (-) Rebound Musculoskeletal: (-) Edema Lymph: (-) Cervical adenopathy Neuro: Alert to self, not person or place. No focal deficits. Psych: Mood and affect Normal A FULL PE IS UNOBTAINABLE DUE TO THE PT'S BASELINE MENTAL STATUS A RESULT OF HER HX WITH DEMENTIA. THIS PT IS A LEVEL 5 CAVEAT. Triage Information Reviewed: Yes Vital Signs On Initial Exam: Initial Vitals Temp Pulse Resp BP Pulse Ox 97.8 F 74 18 120/70 96 02/06/19 09:28 02/06/19 09:28 02/06/19 09:28 02/06/19 09:28 02/06/19 09:28 Vital Signs Reviewed: Yes Completion Of Physical Exam Limited Due To: Dementia, Level 5 Procedures - Sedation Patient Received Moderate/Deep Sedation with Procedure: No - Laceration/Wound Repair 1 Location: head - occipital region Description: Linear Anesthesia: Local, 2.0%, Lido - 5 ccs, Epi Length, Depth and Shape: 8 cm laceration Betadine Prep?: No Irrigated w/ Saline (ccs): 250 Laceration/Wound Explored: clean Closure: Single Layer, [place] #__ - 9 Layer Closure?: Yes Sterile Dressing Applied?: Yes Diagnostics - Vital Signs Vital Signs Temp Pulse Resp BP Pulse Ox 02/06/19 09:28 97.8 F 74 18 120/70 96 - Laboratory Result Diagrams: 02/06/19 10:31 02/06/19 10:31 Lab Statement: Any lab studies that have been ordered have been reviewed, and results considered in the medical decision making process. - Radiology CXR Radiology Interpretation Completed By: Radiologist Summary of Radiographic Findings: Small pleural effusion versus pleural thickening at the left costophrenic angle. Linear bibasilar airspace opacification could be promotions representative of atelectasis. ED physician has reviewed this report. - CT Cervical Spine CT CT Interpretation Completed By: Radiologist Summary of CT Findings: 1. No fracture or traumatic malalignment of cervical spine. 2. Varying degrees of multilevel spondylosis results in at least mild spinal canal and. bilateral neural foraminal stenosis at C5-C6 and C6-C7. 3. There is acquired osseous fusion of the left C3-C4 facets. 4. Osteopenia. ED physician has reviewed this report. Brain CT CT Interpretation Completed By: Radiologist Summary of CT Findings: 1. Right posterior scalp laceration with an intact subjacent calvarium. 2. No acute intracranial abnormality. 3. Mild chronic small vessel scanner disease is likely. 4. Moderate cerebral volume loss. ED physician has reviewed this report. - EKG 1048 Cardiac Rate: NL - [address] Segment: Normal Ectopy: None Summary of EKG Findings: An EKG at 1048 reveals normal sinus rhythm 71, nml axis , nml intervals. No STEMI. No acute changes. Poor quality due to pts shaking. Interpreted by Dr. Fraga at 1112 02/06/19. Re-Evaluation - Re-Evaluation First Eval Re-Evaluation Time: 11:10 Change: Improved - laceration repaired, labs unremarkable. Patient tolerated PO Head Injury Course/Dx Course Of Treatment: 73 y/o F w dementia p/w head laceration after unwitnessed fall. - PE w 8 cm lac posterior occiput, wound irrigated and stapled. Updated tetanus. - CT brain/cspine neg for acute pathology. - Suspect 2/2 mechanical fall but also consider syncopal episode given that it is unwitnessed: EKG w artifact 2/2 movement, labs unremarkable. - Diagnoses Provider Diagnoses: Occipital scalp laceration, Fall Discharge ED - Sign-Out/Discharge Documenting (check all that apply): Patient Departure - discharge - Discharge Plan Condition: Stable Disposition: HOME Patient Education Materials: Fall Prevention for Older Adults (ED) Referrals: David,Kasey M, DO [Primary Care Provider] - 2 Days Additional Instructions: You were seen in the emergency department for a fall. Your head CT and spine CT did not show any new abnormalities. You received tyrese today. These need to be removed in 7days. Please keep the area dry and clean. Return to the emergency department or seek medical attention for drainage, redness to the area, increased pain around the laceration. Once the wound is healed, you can apply sunscreen to help with scar prevention. If any studies were not completed at the time of discharge you will be called with the relevant results. Please follow up with your primary care doctor in next 2-3 days and return to emergency department for worsening or concerning symptoms. It was a pleasure taking care of you today. - Billing Disposition and Condition Condition: STABLE Disposition: Home - Attestation Statements Document Initiated by Farhad: Yes Documenting Scribe: Francisco Wang Provider For Whom Farhad is Documenting (Include Credential): Gissell Fraga MD Scribe Attestation: IFrancisco, scribed for Gissell rFaga MD on 02/06/19 at 1137. Scribe Documentation Reviewed: Yes Provider Attestation: The documentation as recorded by the Francisco elmore accurately reflects the service I personally performed and the decisions made by , Gissell Fraga MD Status of Scribe Document: Viewed
[2019-02-06 10:41] LABS: ABS Eosinophils 0.2 10^3/ul (0-0.6); ABS Lymphocytes 1.9 10^3/ul (1.0-4.8); ABS Monocytes 0.7 10^3/ul (0-0.8); Eosinophil % 1.6 %; Hematocrit 34 % (35-47); Hemoglobin 11.3 g/dL (12.0-16.0); Lymphocyte % 19.5 %; Mean Corpuscular HGB Conc 34 g/dL (31-36); Mean Corpuscular Hemoglobin 29 pg (27-31); Mean Corpuscular Volume 85 fL (80-97); Mean Platelet Volume 10.1 fL (7.4-10.4); Platelet Count 197 10^3/uL (150-450); Red Blood Count 3.95 10^6 /uL (3.70-4.87); Red Cell Distribution Width 15 % (10-15); White Blood Count 9.7 10^3/uL (3.5-10.8)
[2019-02-06 10:56] LABS: Albumin 4.2 g/dL (3.2-5.2); Albumin/Globulin Ratio 1.7 (1-3); BUN/Creatinine Ratio 24.8 (8-20); Calcium 9.4 mg/dL (8.6-10.3); EGFR African American 62.5 (>60); EGFR Non-African American 51.7 (>60); Globulin 2.5 g/dL (2-4); Potassium 4.5 mmol/L (3.5-5.0); Total Bilirubin 0.3 mg/dL (0.2-1.0); Total Protein 6.7 g/dL (6.4-8.9)
[2019-02-06 10:58] LABS: Troponin I 0.01 ng/mL (<0.04)
[2019-02-06] MEDS ORDERED: Acetaminophen TAB* 325 MG PO ONE (11:10)
[2019-02-06 12:11] VITALS: BP 122/75
== END 2019-02-06 12:10 | disposition home or self-care (01) ==
LOC: ED 09:20
DX: S01.01XA Laceration without foreign body of scalp, initial encounter (principal); Z23 Encounter for immunization; M48.02 Spinal stenosis, cervical region; W19.XXXA Unspecified fall, initial encounter; Y92.129 Unspecified place in nursing home as the place of occurrence of the external cause; F03.90 Unspecified dementia, unspecified severity, without behavioral disturbance, psychotic disturbance, mood disturbance, and anxiety; I50.9 Heart failure, unspecified; Z79.899 Other long term (current) drug therapy
CPT/HCPCS: 12004; 36415; 70450; 71045; 72125; 80053; 84484; 85025; 90471; 90715; 93005; 99284